=== PATIENT | female | born 1935 | race Caucasian/White ===

== ENCOUNTER 2017-10-30 09:42 | Day surgery (SDC) | payer MEDICARE, OTHER ==
[2017-10-29 15:43] LABS: BASOPHILS % (AUTO) 0.5 % (0-1); EOSINOPHILS # (AUTO) 0.1 X10'3 (0-0.9); EOSINOPHILS % (AUTO) 1.8 % (0-6); HEMATOCRIT 40.2 % (35.0-45.0); HEMOGLOBIN 13.6 g/dl (12.0-16.0); LYMPHOCYTES # (AUTO) 1.9 X10'3 (1.1-4.8); LYMPHOCYTES % (AUTO) 36.1 % (21-51); MEAN CORPUSCULAR HEMOGLOBIN 31.1 PG (27.0-31.0); MEAN CORPUSCULAR HGB CONC 33.7 % (33.0-36.5); MEAN CORPUSCULAR VOLUME 92.4 FL (78-98); MEAN PLATELET VOLUME 6.5 FL (7.4-10.4); MONOCYTES # (AUTO) 0.5 X10'3 (0-0.9); MONOCYTES % (AUTO) 9.5 % (2-12); NEUTROPHILS # (AUTO) 2.8 X10'3 (1.8-7.7); NEUTROPHILS % (AUTO) 52.1 % (42-75); PLATELET COUNT 261 X10'3 (140-440); RED BLOOD COUNT 4.35 X10'6 (4.20-5.60); RED CELL DISTRIBUTION WIDTH 14.5 % (11.5-14.5); WHITE BLOOD COUNT 5.3 X10'3 (4.5-11.0)
[2017-10-29 15:49] LABS: PROTHROMBIN TIME 10.4 SECONDS (9.0-12.0)
[2017-10-29 15:50] LABS: ALBUMIN 3.9 G/DL (3.4-5.0); ANION GAP 7 (8-16); BLOOD UREA NITROGEN 17 MG/DL (7-18); CALCIUM 9.6 MG/DL (8.5-10.1); CHLORIDE 107 MMOL/L (99-107); CREATININE 0.81 MG/DL (0.40-0.90); GLUCOSE 106 MG/DL (70-104); SODIUM 144 MMOL/L (135-145); TOTAL CARBON DIOXIDE 30.4 MMOL/L (24-32); eGFR 68 ML/MIN
[2017-10-30] VITALS (17 sets, daily range): BP systolic 105–177; BP diastolic 52–106
[~2017-10-30] VITALS: Ht 154.9 cm; Wt 54.3 kg
[2017-10-30] MEDS ORDERED: MIDAZolam 5mg/ml 2ml vial IV ONE (10:00)
[2017-10-30] MEDS ORDERED: normal saline 1000ml 1,000 ML IV SCH (10:00)
[2017-10-30] MEDS ORDERED: morphine 10mg/ml inj. IV ONE (10:00)
[2017-10-30] MEDS ORDERED: diphenhydrAMINE 25mg capsule PO ONE (10:00)
[2017-10-30] MEDS ORDERED: LORazepam 0.5 MG tablet PO ONE (10:00)
[2017-10-30] MEDS ORDERED: LEVO75TA7 PO (10:17)
[2017-10-30] MEDS ORDERED: APIX5TAB3 PO (10:17)
[2017-10-30] MEDS ORDERED: ASPI-1265 PO (10:17)
[2017-10-30] MEDS ORDERED: KRIL1CAP PO (10:17)
[2017-10-30] MEDS ORDERED: MULT-38 PO (10:17)
[2017-10-30] MEDS ORDERED: METO-539 PO (10:17)
[2017-10-30] MEDS ORDERED: BILB100C PO (10:17)
[2017-10-30] MEDS ORDERED: METO50TA7 PO (10:17)
[2017-10-30] MEDS ORDERED: ACET-2615 PO (10:17)
[2017-10-30] MEDS ORDERED: BIOT25008 PO (10:17)
[2017-10-30] MEDS ORDERED: CHOL10002 PO (10:17)
[2017-10-30] MEDS ORDERED: CHOL40003 PO (10:17)
== END 2017-10-30 14:30 | disposition home or self-care (01) ==
LOC: SSTAY O 09:42
PROVIDERS: ATTEND Internal Medicine Cardiovascular Disease
DX: I08.3 Combined rheumatic disorders of mitral, aortic and tricuspid valves (principal); I48.0 Paroxysmal atrial fibrillation; E03.9 Hypothyroidism, unspecified; Z90.710 Acquired absence of both cervix and uterus; Z79.891 Long term (current) use of opiate analgesic; Z79.01 Long term (current) use of anticoagulants; Z79.82 Long term (current) use of aspirin; Z88.1 Allergy status to other antibiotic agents; Z90.49 Acquired absence of other specified parts of digestive tract; Z98.890 Other specified postprocedural states; Z79.899 Other long term (current) drug therapy
CPT/HCPCS: 36415; 80048; 85025; 85610; 93312; J2250; J2270; J7030; A4620